=== PATIENT | female | born 1950 | race Asian ===

== ENCOUNTER 2017-08-07 22:22 | Inpatient (IN) | payer OTHER ==
[~2017-08-07] VITALS: Ht 162.6 cm; Wt 61.0 kg
[2017-08-07 22:58] LABS: BASOPHIL % 0.4 % (0-2); PLATELET COUNT 230 x10^3mcL (130-400); RED CELL DISTRIBUTION WIDTH 14.3 % (11.5-14.5)
[2017-08-07 23:13] LABS: CALCIUM 8.8 mg/dL (8.5-10.1); CHLORIDE SERUM 104 mmol/L (98-107); CREATININE SERUM 0.9 mg/dL (0.6-1.0); GFR1 > 60 mL/min; GLUCOSE SERUM 139 mg/dL (74-106); POTASSIUM SERUM 3.5 mmol/L (3.5-5.1); SODIUM SERUM 140 mmol/L (136-145)
[2017-08-07 23:18] LABS: ALKALINE PHOSPHATASE 111 U/L (46-116); ALT/SGPT 19 U/L (14-59); AMYLASE 60 U/L (25-115); AST/SGOT 15 U/L (15-37); LIPASE 224 IU/L (73-393); TOTAL PROTEIN, SERUM 7.5 g/dL (6.4-8.2)
[2017-08-07 23:21] LABS: CHOLESTEROL 247 mg/dL (<200); HDL CHOLESTEROL 73 mg/dL (40-60)
[2017-08-08] MEDS ORDERED: ASPIR 8181 MG (00:03)
[2017-08-08 00:52] LABS: microscopic required? YES; urine erythrocyte TRACE (NEGATIVE)
[2017-08-08 01:00] VITALS: BP 150/86
[2017-08-08 01:02] LABS: AMPHETAMINE QUAL UR NONE DETECTED (NEG <=1000)
[2017-08-08 03:06] LABS: MAGNESIUM 2.4 mg/dL (1.8-2.4); PHOSPHOROUS 3.2 mg/dL (2.5-4.9)
[2017-08-08 03:15] LABS: FREE T4 1.1 ng/dL (0.76-1.46); FREE THYROXINE INDEX 3.3 ug/dL (1.4-4.5); T3 TOTAL 0.94 ng/mL; T4(THYROXINE) 8.8 ug/dL (4.7-13.3)
[2017-08-08 03:50] LABS: CHOLESTEROL/HDL RATIO 3.7
[2017-08-08 06:02] VITALS: BP 140/78
[2017-08-08 07:10] LABS: BASOPHIL % 0.6 % (0-2); PLATELET COUNT 225 x10^3mcL (130-400); RED CELL DISTRIBUTION WIDTH 14.7 % (11.5-14.5)
[2017-08-08 07:29] LABS: CALCIUM 9.1 mg/dL (8.5-10.1); CARBON DIOXIDE 26.7 mmol/L (21-32); CHLORIDE SERUM 107 mmol/L (98-107); CREATININE SERUM 0.8 mg/dL (0.6-1.0); GFR1 > 60 mL/min; GLUCOSE SERUM 110 mg/dL (74-106); MAGNESIUM 2.1 mg/dL (1.8-2.4); PHOSPHOROUS 3.6 mg/dL (2.5-4.9); POTASSIUM SERUM 4.4 mmol/L (3.5-5.1); SODIUM SERUM 144 mmol/L (136-145)
[2017-08-08 09:27] VITALS: BP 134/72
[2017-08-08] MEDS ORDERED: LEVAQUIN250 M1 PO (13:15)
[2017-08-08] MEDS ORDERED: LAC PO (13:16)
[2017-08-08 13:49] VITALS: BP 107/62
[2017-08-08 14:00] VITALS: BP 107/62
== END 2017-08-08 14:51 | disposition home or self-care (01) | DRG 243 ==
LOC: ED 22:22 → DU 08-08 00:10
PROVIDERS: Emergency Medicine; ADMIT Family Medicine
DX: K21.9 Gastro-esophageal reflux disease without esophagitis (principal); G93.41 Metabolic encephalopathy; I10 Essential (primary) hypertension; N39.0 Urinary tract infection, site not specified; R31.9 Hematuria, unspecified; Z79.82 Long term (current) use of aspirin; Z68.23 Body mass index [BMI] 23.0-23.9, adult; E78.5 Hyperlipidemia, unspecified
CPT/HCPCS: 82962; 83880; 84439; J0696; J1956; J3490; J7030

== ENCOUNTER 2019-07-04 06:31 | Day surgery (SDC) | payer OTHER ==
[~2019-07-04] VITALS: Ht 162.6 cm; Wt 61.2 kg
[~2019-07-04 06:31] MED LIST: ASPIR 8181 MG; LAC PO; LEVAQUIN250 M1 PO
[2019-07-04 06:55] VITALS: BP 160/73
[2019-07-04 10:35] VITALS: BP 144/85
== END 2019-07-04 10:15 | disposition home or self-care (01) ==
LOC: OR → DS 06:31 → OR 11:39
DX: N95.0 Postmenopausal bleeding (principal); E78.5 Hyperlipidemia, unspecified; Z79.899 Other long term (current) drug therapy
CPT/HCPCS: C1758; J2250; J2405; J3010; J7120